=== PATIENT | female | born 1930 | race Caucasian/White ===

== ENCOUNTER → 2017-03-06 | Outpatient (CLI) | payer MEDICARE ==
[~2017-03-06] VITALS: Ht 30.5 cm; Wt 0.5 kg
[~2017-03-06] MED LIST: ARFO15NE2 NEB; CLOP75TA41 PO; DOCU-80 PO; DON5T PO; FURO20TA3 PO; FUROSEMIDE 40 MG/4 ML VIAL IV ONE; FUROSEMIDE 40 MG/4 ML VIAL ONE; LEV50T PO; LEVO-28 PO; LEVO750T2 PO; LEVOPOW43 PO; LOR05T PO; LOS50T PO; MULTTAB5 PO; PHEN-250 PO; PHEN50CH4 OR; POT10T PO; POTA10TA34 PO; POTA80TA PO; POTASSIUM CHL 10 Meq TABLET PO ONE; SIMV-8 PO; SIMV10TA84 PO; TIOTCAP INH; TOLT2CAP7 PO; TOLT4CAP12 PO; [UNRECOGNIZED DRUG - CODE] PO
[2017-03-06 11:15] VITALS: BP 122/49
[2017-03-06 11:40] VITALS: BP 122/49
[2017-03-06 16:29] LABS: BUN/Creatinine Ratio 21.7; Calcium 8.3 mg/dL (8.5-10.1); Potassium 4.4 mmol/L (3.5-5.1)
== END | disposition home or self-care (01) ==
LOC: Rad HDHVI 11:18
PROVIDERS: ATTEND Internal Medicine Cardiovascular Disease
DX: I11.0 Hypertensive heart disease with heart failure (principal); I50.9 Heart failure, unspecified
CPT/HCPCS: 36415; 80048; 93971; 96374; G0463; J1940; 96365

== ENCOUNTER → 2017-04-01 | Outpatient (CLI) | payer MEDICARE, OTHER ==
[~2017-04-01] MED LIST changes: -FUROSEMIDE 40 MG/4 ML VIAL IV ONE; -FUROSEMIDE 40 MG/4 ML VIAL ONE; -LOR05T PO; +LORA-654 PO; -POTASSIUM CHL 10 Meq TABLET PO ONE
[2017-04-01 16:36] LABS: Calcium 8.5 mg/dL (8.5-10.1); Potassium 4.3 mmol/L (3.5-5.1)
[2017-04-01 16:38] LABS: BUN/Creatinine Ratio 22.6
== END | disposition home or self-care (01) ==
LOC: LAB 12:12
PROVIDERS: ATTEND Internal Medicine Cardiovascular Disease
DX: I10 Essential (primary) hypertension (principal)
CPT/HCPCS: 36415; 80048

== ENCOUNTER → 2017-04-24 | Outpatient (CLI) | payer MEDICARE, OTHER ==
[~2017-04-24] VITALS: Ht 33 cm; Wt 0.5 kg
[~2017-04-24] MED LIST changes: +FUROSEMIDE 100 MG/10ML VIAL IV ONE; +FUROSEMIDE 40 MG/4 ML VIAL ONE; +POTASSIUM CHL 10 Meq TABLET PO ONE; +POTASSIUM CHL 20 Meq TABLET PO ONE
[2017-04-24 10:50] VITALS: BP 114/56
[2017-04-24 11:20] VITALS: BP 129/61
[2017-04-24 12:45] LABS: Basophils # (auto) 0 uL; Basophils % (auto) 0.5 % (0.0-2.0); Eosinophils # (auto) 0 uL; Eosinophils % (auto) 0.5 % (0.0-7.0); Hematocrit 33.4 % (36.0-46.0); Hemoglobin 11.4 g/dL (12.2-16.2); Lymphocytes # (auto) 0.8 uL; Lymphocytes % (auto) 37.7 % (10.0-50.0); Mean Corpuscular Hemoglobin 37.3 pg (28.0-32.0); Mean Corpuscular Hgb Conc. 34.2 g/dL (32.0-36.0); Mean Corpuscular Volume 109.2 fL (80.0-100.0); Mean Platelet Volume 6.6 fL (6.9-10.8); Monocytes # (auto) 0.1 uL; Monocytes % (auto) 3.9 % (0.0-12.0); Neutrophils # (auto) 1.2 uL; Neutrophils % (auto) 57.4 % (37.0-80.0); Nucleated Red Blood Cells % 0.2 %; Platelet Count (auto) 111 10^3/uL (140-450); Red Cell Distribution Width 14.4 % (11.8-14.3); White Blood Cell 2.1 10^3/uL (4.4-10.8)
[2017-04-24 13:23] LABS: Potassium 4.6 mmol/L (3.5-5.1)
== END | disposition home or self-care (01) ==
LOC: CHF HDHVI 10:57
PROVIDERS: ATTEND Internal Medicine Cardiovascular Disease
DX: E87.6 Hypokalemia (principal); R94.4 Abnormal results of kidney function studies; D64.9 Anemia, unspecified
CPT/HCPCS: 36415; 82565; 84132; 84520; 85025; 96374; G0463; J1940

== ENCOUNTER → 2017-05-02 | Outpatient (CLI) | payer MEDICARE, OTHER ==
[~2017-05-02] MED LIST changes: +CYANOCOBALAMIN (B-12) 1000 MCG/1 ML VIAL IM ONE; +CYANOCOBALAMIN (B-12) 1000 MCG/1 ML VIAL ONE; -FUROSEMIDE 100 MG/10ML VIAL IV ONE; -FUROSEMIDE 40 MG/4 ML VIAL ONE; -POTASSIUM CHL 10 Meq TABLET PO ONE; -POTASSIUM CHL 20 Meq TABLET PO ONE
[2017-05-02 14:25] VITALS: BP 139/60
== END | disposition home or self-care (01) ==
LOC: CHF HDHVI 14:25
PROVIDERS: ATTEND Internal Medicine Cardiovascular Disease
DX: I50.9 Heart failure, unspecified (principal); R53.83 Other fatigue; R60.0 Localized edema
CPT/HCPCS: 96372; G0463; J3420

== ENCOUNTER → 2017-06-13 | Outpatient (CLI) | payer MEDICARE, OTHER ==
[~2017-06-13] MED LIST changes: -CYANOCOBALAMIN (B-12) 1000 MCG/1 ML VIAL IM ONE; -CYANOCOBALAMIN (B-12) 1000 MCG/1 ML VIAL ONE
== END | disposition home or self-care (01) ==
LOC: Rad HDHVI 11:08
PROVIDERS: ATTEND Internal Medicine Cardiovascular Disease
DX: I51.7 Cardiomegaly (principal); M40.294 Other kyphosis, thoracic region; M85.80 Other specified disorders of bone density and structure, unspecified site
CPT/HCPCS: 71046

== ENCOUNTER → 2017-08-30 | Outpatient (CLI) | payer MEDICARE, OTHER ==
[~2017-08-30] MED LIST changes: +IOHEXOL 350 MG/ML 100ML IJ ONE; +READI-CAT 2 (BARIUM SULF)(VANILLA SMOOTHIE) 450ML ONE
[2017-08-30 09:20] VITALS: BP 112/62
[2017-08-30 10:00] VITALS: BP 114/55
== END | disposition home or self-care (01) ==
LOC: Rad HDHVI 09:10
PROVIDERS: ATTEND Internal Medicine Cardiovascular Disease
DX: K42.9 Umbilical hernia without obstruction or gangrene (principal); R59.1 Generalized enlarged lymph nodes; I10 Essential (primary) hypertension
CPT/HCPCS: 74177; 82565; G0463; Q9967

== ENCOUNTER → 2018-02-13 | Outpatient (CLI) | payer MEDICARE, OTHER ==
[~2018-02-13] MED LIST changes: -IOHEXOL 350 MG/ML 100ML IJ ONE; -POTA10TA34 PO; +POTA1TAB61 PO; -READI-CAT 2 (BARIUM SULF)(VANILLA SMOOTHIE) 450ML ONE
== END | disposition home or self-care (01) ==
LOC: Rad HDHVI 14:12
PROVIDERS: ATTEND Internal Medicine Cardiovascular Disease
DX: I21.19 ST elevation (STEMI) myocardial infarction involving other coronary artery of inferior wall (principal); I49.9 Cardiac arrhythmia, unspecified; R94.31 Abnormal electrocardiogram [ECG] [EKG]; Z88.5 Allergy status to narcotic agent
CPT/HCPCS: 93306

== ENCOUNTER → 2018-03-13 | Outpatient (CLI) | payer MEDICARE, OTHER | END | disposition home or self-care (01) | LOC: Rad HDHVI 11:11 | PROVIDERS: ATTEND Internal Medicine Cardiovascular Disease | DX: M48.061 Spinal stenosis, lumbar region without neurogenic claudication (principal) | CPT/HCPCS: 72131 ==

== ENCOUNTER → 2019-03-18 | Outpatient (CLI) | payer MEDICARE, OTHER ==
[~2019-03-18] MED LIST changes: -LORA-654 PO; +LORA0.5T12 PO
[2019-03-18 11:54] LABS: Eosinophils # (auto) 0 uL; Hemoglobin 12.3 g/dL (12.2-16.2); Monocytes # (auto) 0.3 uL; Monocytes % (auto) 2.9 % (0.0-12.0); Red Blood Cells 3.31 10^6/uL (4.0-5.20)
[2019-03-18 11:56] LABS: Basophils # (auto) 0 uL; Basophils % (auto) 0.4 % (0.0-2.0); Eosinophils % (auto) 0.2 % (0.0-7.0); Hematocrit 36.6 % (36.0-46.0); Lymphocytes # (auto) 6.2 uL; Lymphocytes % (auto) 51.9 % (10.0-50.0); Mean Corpuscular Hemoglobin 37.4 pg (28.0-32.0); Mean Corpuscular Hgb Conc. 33.7 g/dL (32.0-36.0); Mean Corpuscular Volume 110.8 fL (80.0-100.0); Neutrophils # (auto) 5.4 uL; Neutrophils % (auto) 44.6 % (37.0-80.0); Platelet Count (auto) 172 10^3/uL (140-450); Red Cell Distribution Width 13.9 % (11.8-14.3)
[2019-03-18 12:25] LABS: Potassium 3.8 mmol/L (3.5-5.1)
[2019-03-18 12:52] LABS: Albumin 3.2 g/dL (3.4-5.0); Bilirubin, Total 0.4 mg/dL (0.2-1.0); Calcium 8.8 mg/dL (8.5-10.1)
[2019-03-18 13:28] LABS: Free T4 (Free Thyroxine) 1.19 ng/dL (0.89-1.76)
[2019-03-18 15:57] LABS: Urine Blood 2+ /uL (Negative); Urine Specific Gravity 1.019 (1.001-1.035)
== END | disposition home or self-care (01) ==
LOC: LAB 08:13
PROVIDERS: ATTEND Internal Medicine Cardiovascular Disease
DX: E03.9 Hypothyroidism, unspecified (principal); K90.9 Intestinal malabsorption, unspecified; D51.9 Vitamin B12 deficiency anemia, unspecified; N39.0 Urinary tract infection, site not specified; Z79.899 Other long term (current) drug therapy
CPT/HCPCS: 36415; 80053; 80061; 81003; 82306; 82607; 83036; 84439; 84443; 85025; 87086; 87088; 87186

== ENCOUNTER 2019-08-07 08:49 | Inpatient (IN) | payer MEDICARE, OTHER ==
[~2019-08-07] VITALS: Ht 167.6 cm; Wt 71.9 kg
[2019-08-07] MEDS ORDERED: ONDANSETRON HCL 4 MG/2 ML VIAL IV ONE (09:30)
[2019-08-07] MEDS ORDERED: SODIUM CHLORIDE 0.9% 500 ML IVB ONE (09:30)
[2019-08-07] MEDS ORDERED: MORPHINE SULFATE 4 MG/ML SYR/VIAL IV ONE (09:30)
[2019-08-07 10:17] LABS: Eosinophils # (auto) 0 10 ^3/uL (0-0.8); Hemoglobin 12.6 g/dL (12.2-16.2); Monocytes # (auto) 0.6 10 ^3/uL (0-1.3); Platelet Count (auto) 169 10^3/uL (140-450)
[2019-08-07 10:18] LABS: Basophils # (auto) 0.1 10 ^3/uL (0-0.2); Basophils % (auto) 0.4 % (0.0-2.0); Hematocrit 36.9 % (36.0-46.0); Lymphocytes # (auto) 4.4 10 ^3/uL (0.4-5.4); Lymphocytes % (auto) 31.3 % (10.0-50.0); Mean Corpuscular Hemoglobin 34.8 pg (28.0-32.0); Mean Corpuscular Volume 102.4 fL (80.0-100.0); Neutrophils # (auto) 9.1 10 ^3/uL (1.6-8.6); Neutrophils % (auto) 64.3 % (37.0-80.0); Red Cell Distribution Width 14.3 % (11.8-14.3); White Blood Cell 14.1 10^3/uL (4.4-10.8)
[2019-08-07 10:34] LABS: INR 1.07 (0.9-1.15)
[2019-08-07 10:37] LABS: Albumin 3.3 g/dL (3.4-5.0); Magnesium 2.3 mg/dL (1.6-2.6); Potassium 3.5 mmol/L (3.5-5.1)
[2019-08-07 10:42] LABS: BUN/Creatinine Ratio 17.8; Bilirubin, Total 0.7 mg/dL (0.2-1.0); Calcium 8.7 mg/dL (8.5-10.1)
[2019-08-07 11:28] LABS: Urine Bacteria FEW /hpf (None Seen); Urine Blood TRACE /uL (Negative); Urine Hyaline Cast MOD /lpf (0 - 2); Urine Specific Gravity 1.014 (1.001-1.035); Urine WBC 8 /hpf (0 - 5)
[2019-08-07] MEDS ORDERED: NITROGLYCERIN 0.4 MG SL TAB SL PRN (11:45)
[2019-08-07] MEDS ORDERED: MORPHINE SULF INJ 2 MG/ML SYRINGE 1ML IV PRN (11:45)
[2019-08-07 14:17] VITALS: BP 142/76
[2019-08-07 14:23] VITALS: BP 142/76
[2019-08-07] MEDS: PHENYTOIN SODIUM 100 MG CAP PO SCH ×2 (14:31→22:13)
[2019-08-07] MEDS ORDERED: HYDROcodone-ACET 10/325MG TAB PO PRN (15:15)
[2019-08-07] MEDS ORDERED: ceFAZolin 1GM/50ML 50 ML IV ONE (17:45)
[2019-08-07 17:55] VITALS: BP 128/51
[2019-08-07] MEDS: HYDROmorphone HCL 2 MG/ML VL IV PRN (18:25)
[2019-08-07 22:08] VITALS: BP 123/51
[2019-08-07] MEDS: ENOXAPARIN SOD 40 MG/0.4 ML SYRINGE SC SCH (22:13)
[2019-08-07] MEDS: ATORVASTATIN 20 MG TAB PO SCH (22:14)
[2019-08-08] VITALS (7 sets, daily range): BP systolic 104–149; BP diastolic 47–71
[2019-08-08] MEDS: HYDROmorphone HCL 2 MG/ML VL IV PRN ×2 (04:00→11:21)
[2019-08-08] MEDS: PHENYTOIN SODIUM 100 MG CAP PO SCH ×3 (06:29→22:57)
[2019-08-08] MEDS: IBRUTINIB 140 MG PO SCH (09:36)
[2019-08-08] MEDS: LETROZOLE PO SCH (09:43)
[2019-08-08] MEDS: ENOXAPARIN SOD 40 MG/0.4 ML SYRINGE SC SCH ×2 (09:45→22:56)
[2019-08-08] MEDS: LEVOTHYROXINE SODIUM 50 MCG TAB PO SCH (09:46)
[2019-08-08] MEDS: MEMANTINE HCL 5 MG TAB PO SCH (09:48)
[2019-08-08] MEDS: TORSEMIDE 20 MG TAB PO SCH (09:50)
[2019-08-08] MEDS: POTASSIUM CHL 10 Meq TABLET PO SCH (09:54)
[2019-08-08] MEDS: ALPRAZolam 0.25 MG TAB PO SCH (14:36)
[2019-08-08] MEDS: ATORVASTATIN 20 MG TAB PO SCH (22:57)
[2019-08-09 05:00] VITALS: BP 122/60
[2019-08-09] MEDS: PHENYTOIN SODIUM 100 MG CAP PO SCH (06:41)
[2019-08-09 09:01] VITALS: BP 123/55
[2019-08-09] MEDS: LETROZOLE PO SCH (09:21)
[2019-08-09] MEDS: IBRUTINIB 140 MG PO SCH (09:22)
[2019-08-09] MEDS: ENOXAPARIN SOD 40 MG/0.4 ML SYRINGE SC SCH (09:24)
[2019-08-09] MEDS: LEVOTHYROXINE SODIUM 50 MCG TAB PO SCH (09:25)
[2019-08-09] MEDS: MEMANTINE HCL 5 MG TAB PO SCH (09:26)
[2019-08-09] MEDS: TORSEMIDE 20 MG TAB PO SCH (09:30)
[2019-08-09] MEDS: POTASSIUM CHL 10 Meq TABLET PO SCH (09:31)
[2019-08-09] MEDS: HYDROmorphone HCL 2 MG/ML VL IV PRN ×2 (09:39→16:49)
[2019-08-09] MEDS: ALPRAZolam 0.25 MG TAB PO SCH (11:03)
[2019-08-09 12:49] VITALS: BP 106/45
[2019-08-09 17:26] VITALS: BP 108/46
[2019-08-09 21:00] VITALS: BP 129/55
[2019-08-09] MEDS: ATORVASTATIN 20 MG TAB PO SCH (22:00)
[2019-08-10 05:00] VITALS: BP 116/50
[2019-08-10 09:00] VITALS: BP_SYST 121; BP_SYST 132; BP_DIAS 50; BP_DIAS 55
[2019-08-10] MEDS: LETROZOLE PO SCH (10:11)
[2019-08-10] MEDS: IBRUTINIB 140 MG PO SCH (10:11)
[2019-08-10] MEDS: levoFLOXacin 500MG 100 ML IV SCH (10:11)
[2019-08-10] MEDS: HYDROmorphone HCL 2 MG/ML VL IV PRN ×2 (10:43→18:32)
[2019-08-10 17:00] VITALS: BP 122/62
[2019-08-10 18:17] LABS: Basophils # (auto) 0 10 ^3/uL (0-0.2); Basophils % (auto) 0.2 % (0.0-2.0); Eosinophils # (auto) 0 10 ^3/uL (0-0.8); Lymphocytes # (auto) 4.4 10 ^3/uL (0.4-5.4); Monocytes # (auto) 0.7 10 ^3/uL (0-1.3); Red Cell Distribution Width 13.9 % (11.8-14.3)
[2019-08-10 18:20] LABS: Hematocrit 34.2 % (36.0-46.0); Hemoglobin 11.6 g/dL (12.2-16.2); Lymphocytes % (auto) 24.5 % (10.0-50.0); Mean Corpuscular Hemoglobin 34.5 pg (28.0-32.0); Mean Corpuscular Hgb Conc. 33.8 g/dL (32.0-36.0); Mean Corpuscular Volume 101.8 fL (80.0-100.0); Monocytes % (auto) 3.7 % (0.0-12.0); Neutrophils # (auto) 12.8 10 ^3/uL (1.6-8.6); Neutrophils % (auto) 71.6 % (37.0-80.0); Platelet Count (auto) 153 10^3/uL (140-450); Red Blood Cells 3.36 10^6/uL (4.0-5.20); White Blood Cell 17.9 10^3/uL (4.4-10.8)
[2019-08-10 18:36] LABS: BUN/Creatinine Ratio 27.4; Calcium 8.9 mg/dL (8.5-10.1); Potassium 3.6 mmol/L (3.5-5.1)
[2019-08-10 21:00] VITALS: BP 123/62
[2019-08-10] MEDS: ATORVASTATIN 20 MG TAB PO SCH (22:51)
[2019-08-11 05:00] VITALS: BP 139/73
[2019-08-11 06:32] LABS: INR 1.01 (0.9-1.15); Partial Thromboplastin Time 31.3 sec (23.64-32.05)
[2019-08-11 09:00] VITALS: BP 135/63
[2019-08-11] MEDS ORDERED: ceFAZolin 1GM/50ML 50 ML IV ONE (09:09)
[2019-08-11] MEDS ORDERED: LIDOCAINE 1% HCL (LOCAL ANESTH.) INJ 20ML MDV ONE (09:29)
[2019-08-11] MEDS ORDERED: SUCCINYLCHOLINE CHLORIDE 20 MG/ML 10ML VIAL IV ONE (09:29)
[2019-08-11] MEDS ORDERED: ETOMIDATE (2MG/ML) 20ML VIAL IV ONE (09:34)
[2019-08-11] MEDS ORDERED: ROCURONIUM 10MG/ML 10ML VIAL IV ONE (09:34)
[2019-08-11] MEDS: levoFLOXacin 500MG 100 ML IV SCH (10:00)
[2019-08-11] MEDS: LETROZOLE PO SCH (10:00)
[2019-08-11] MEDS: IBRUTINIB 140 MG PO SCH (10:00)
[2019-08-11] MEDS ORDERED: fentaNYL CITRATE 100 MCG/2 ML VL ONE (10:11)
[2019-08-11] MEDS ORDERED: GLYCOPYRROLATE 0.2 MG/ML 1ML VIAL ONE (10:48)
[2019-08-11] MEDS ORDERED: NEOSTIGMINE 1 MG/ML INJ (10mg/10ML VIAL) ONE (10:48)
[2019-08-11] MEDS ORDERED: ONDANSETRON HCL 4 MG/2 ML VIAL IV PRN (11:15)
[2019-08-11] MEDS ORDERED: HYDROcodone-ACET 10/325MG TAB PO PRN (11:15)
[2019-08-11] MEDS ORDERED: HYDROmorphone HCL 2 MG/ML VL IV PRN (11:15)
[2019-08-11] MEDS ORDERED: NALOXONE HCL 0.4 MG/ML VIAL IV PRN (11:15)
[2019-08-11 13:00] VITALS: BP 139/70
[2019-08-11] MEDS: ceFAZolin 1GM/50ML 50 ML IV SCH ×2 (15:30→21:18)
[2019-08-11] MEDS: HYDROmorphone HCL 2 MG/ML VL IV PRN ×2 (16:23→21:18)
[2019-08-11 17:00] VITALS: BP 112/55
[2019-08-11] MEDS: ATORVASTATIN 20 MG TAB PO SCH (21:17)
[2019-08-11 22:00] VITALS: BP 113/51
[2019-08-12] VITALS (7 sets, daily range): BP systolic 88–121; BP diastolic 45–68
[2019-08-12] MEDS: ceFAZolin 1GM/50ML 50 ML IV SCH ×3 (05:36→23:14)
[2019-08-12 07:57] LABS: Hematocrit 30.5 % (36.0-46.0); Hemoglobin 10.5 g/dL (12.2-16.2)
[2019-08-12] MEDS: IBRUTINIB 140 MG PO SCH (09:56)
[2019-08-12] MEDS: LETROZOLE PO SCH (09:57)
[2019-08-12] MEDS: levoFLOXacin 500MG 100 ML IV SCH (09:58)
[2019-08-12] MEDS ORDERED: ENOXAPARIN SOD 40 MG/0.4 ML SYRINGE SC SCH (10:00)
[2019-08-12 16:58] LABS: Eosinophils # (auto) 0 10 ^3/uL (0-0.8); Mean Corpuscular Volume 100.9 fL (80.0-100.0); Monocytes # (auto) 0.7 10 ^3/uL (0-1.3); Neutrophils # (auto) 12.3 10 ^3/uL (1.6-8.6); Neutrophils % (auto) 71.7 % (37.0-80.0); White Blood Cell 17.2 10^3/uL (4.4-10.8)
[2019-08-12 17:03] LABS: Basophils # (auto) 0 10 ^3/uL (0-0.2); Basophils % (auto) 0.2 % (0.0-2.0); Lymphocytes # (auto) 4.2 10 ^3/uL (0.4-5.4); Lymphocytes % (auto) 24.2 % (10.0-50.0); Monocytes % (auto) 3.9 % (0.0-12.0); Red Blood Cells 2.57 10^6/uL (4.0-5.20)
[2019-08-12 17:04] LABS: Hematocrit 25.9 % (36.0-46.0); Hemoglobin 8.8 g/dL (12.2-16.2); Mean Corpuscular Hemoglobin 34.4 pg (28.0-32.0); Mean Corpuscular Hgb Conc. 34.1 g/dL (32.0-36.0); Platelet Count (auto) 156 10^3/uL (140-450); Red Cell Distribution Width 13.6 % (11.8-14.3)
[2019-08-12] MEDS: Ensure HIGH Protein Chocolate 8oz Bottle PO SCH (19:44)
[2019-08-12] MEDS: ATORVASTATIN 20 MG TAB PO SCH (23:11)
[2019-08-13] VITALS (7 sets, daily range): BP systolic 89–110; BP diastolic 43–55
[2019-08-13] MEDS: ceFAZolin 1GM/50ML 50 ML IV SCH ×3 (05:47→22:21)
[2019-08-13 07:38] LABS: Basophils # (auto) 0 10 ^3/uL (0-0.2); Eosinophils # (auto) 0 10 ^3/uL (0-0.8); Hemoglobin 9.7 g/dL (12.2-16.2); Monocytes # (auto) 0.4 10 ^3/uL (0-1.3); Red Cell Distribution Width 16.2 % (11.8-14.3)
[2019-08-13 07:46] LABS: Basophils % (auto) 0.3 % (0.0-2.0); Hematocrit 28.3 % (36.0-46.0); Lymphocytes # (auto) 3.4 10 ^3/uL (0.4-5.4); Lymphocytes % (auto) 23.9 % (10.0-50.0); Mean Corpuscular Hemoglobin 34.1 pg (28.0-32.0); Mean Corpuscular Hgb Conc. 34.4 g/dL (32.0-36.0); Mean Corpuscular Volume 99.1 fL (80.0-100.0); Monocytes % (auto) 2.7 % (0.0-12.0); Neutrophils # (auto) 10.5 10 ^3/uL (1.6-8.6); Neutrophils % (auto) 73.1 % (37.0-80.0); Platelet Count (auto) 158 10^3/uL (140-450); Red Blood Cells 2.85 10^6/uL (4.0-5.20); White Blood Cell 14.3 10^3/uL (4.4-10.8)
[2019-08-13 07:47] LABS: Albumin 2.1 g/dL (3.4-5.0); Anion Gap 7 (5-15); Blood Urea Nitrogen 45 mg/dL (7-18); Calcium 8.9 mg/dL (8.5-10.1); Carbon Dioxide 29 mmol/L (21-32); Chloride 102 mmol/L (98-107); Glucose 113 mg/dL (74-106); Potassium 3.9 mmol/L (3.5-5.1); Sodium 138 mmol/L (136-145)
[2019-08-13 07:50] LABS: Alanine Aminotransferase < 6 U/L (13-56); Alkaline Phosphatase 71 U/L (45-117); Aspartate Aminotransferase 15 U/L (15-37); BUN/Creatinine Ratio 33.3; Bilirubin, Total 0.6 mg/dL (0.2-1.0); GFR African American 47 mL/min; GFR Non-African American 39 mL/min; Total Protein 5.5 g/dL (6.4-8.2)
[2019-08-13] MEDS: Ensure HIGH Protein Chocolate 8oz Bottle PO SCH ×3 (08:00→18:48)
[2019-08-13] MEDS: IBRUTINIB 140 MG PO SCH (10:00)
[2019-08-13] MEDS: LETROZOLE PO SCH (10:00)
[2019-08-13] MEDS: levoFLOXacin 500MG 100 ML IV SCH (10:10)
[2019-08-13] MEDS: ATORVASTATIN 20 MG TAB PO SCH (22:21)
[2019-08-14] VITALS (7 sets, daily range): BP systolic 99–136; BP diastolic 36–62
[2019-08-14] MEDS: ceFAZolin 1GM/50ML 50 ML IV SCH ×3 (05:44→21:52)
[2019-08-14 07:27] LABS: Hemoglobin 9.4 g/dL (12.2-16.2)
[2019-08-14 07:31] LABS: Hematocrit 26.8 % (36.0-46.0)
[2019-08-14] MEDS: levoFLOXacin 250MG 50 ML IV SCH (10:01)
[2019-08-14] MEDS: LETROZOLE PO SCH (10:03)
[2019-08-14] MEDS: IBRUTINIB 140 MG PO SCH (10:10)
[2019-08-14] MEDS: Ensure HIGH Protein Chocolate 8oz Bottle PO SCH ×3 (12:00→18:00)
[2019-08-14] MEDS: LACTULOSE 20Gm/30ML SOLN PO PRN (12:00)
[2019-08-14] MEDS: ATORVASTATIN 20 MG TAB PO SCH (21:52)
[2019-08-15] VITALS (7 sets, daily range): BP systolic 98–128; BP diastolic 36–75
[2019-08-15] MEDS: ceFAZolin 1GM/50ML 50 ML IV SCH ×3 (05:43→21:57)
[2019-08-15] MEDS: Ensure HIGH Protein Chocolate 8oz Bottle PO SCH ×3 (08:00→18:27)
[2019-08-15] MEDS: IBRUTINIB 140 MG PO SCH (09:44)
[2019-08-15] MEDS: levoFLOXacin 250MG 50 ML IV SCH (09:44)
[2019-08-15] MEDS: LETROZOLE PO SCH (09:45)
[2019-08-15 11:21] LABS: Hematocrit 25.8 % (36.0-46.0); Hemoglobin 8.8 g/dL (12.2-16.2)
[2019-08-15] MEDS: IRON SUCROSE COMPLEX 200 MG in SODIUM CHL 0.9% 100 ML IV SCH (13:00)
[2019-08-15] MEDS: ATORVASTATIN 20 MG TAB PO SCH ×2 (21:57→22:00)
[2019-08-15] MEDS ORDERED: EPOETIN ALFA 10,000 UNIT/1 ML VIAL SC ONE (22:00)
[2019-08-16 05:35] VITALS: BP 106/45
[2019-08-16] MEDS: ceFAZolin 1GM/50ML 50 ML IV SCH ×3 (05:36→21:07)
[2019-08-16 06:17] LABS: Hematocrit 25.6 % (36.0-46.0); Hemoglobin 8.7 g/dL (12.2-16.2)
[2019-08-16] MEDS: Ensure HIGH Protein Chocolate 8oz Bottle PO SCH ×3 (08:00→17:50)
[2019-08-16 09:32] VITALS: BP 98/47
[2019-08-16] MEDS: LETROZOLE PO SCH (09:51)
[2019-08-16] MEDS: levoFLOXacin 250MG 50 ML IV SCH (09:51)
[2019-08-16] MEDS: IBRUTINIB 140 MG PO SCH (09:51)
[2019-08-16] MEDS: IRON SUCROSE COMPLEX 200 MG in SODIUM CHL 0.9% 100 ML IV SCH (12:10)
[2019-08-16 13:00] VITALS: BP 114/55
[2019-08-16 17:41] VITALS: BP 106/53
[2019-08-16] MEDS: ATORVASTATIN 20 MG TAB PO SCH (21:07)
[2019-08-16 22:00] VITALS: BP 107/44
[2019-08-17] MEDS: ceFAZolin 1GM/50ML 50 ML IV SCH ×3 (05:10→21:16)
[2019-08-17 05:37] VITALS: BP 117/44
[2019-08-17] MEDS: Ensure HIGH Protein Chocolate 8oz Bottle PO SCH ×4 (08:00→18:00)
[2019-08-17 09:00] VITALS: BP 112/51
[2019-08-17 09:40] LABS: Hematocrit 26.8 % (36.0-46.0)
[2019-08-17] MEDS: levoFLOXacin 250MG 50 ML IV SCH ×2 (10:09→18:55)
[2019-08-17] MEDS: IBRUTINIB 140 MG PO SCH (10:13)
[2019-08-17] MEDS: LETROZOLE PO SCH (10:13)
[2019-08-17] MEDS: IRON SUCROSE COMPLEX 200 MG in SODIUM CHL 0.9% 100 ML IV SCH (12:00)
[2019-08-17 13:00] VITALS: BP 107/50
[2019-08-17 17:00] VITALS: BP 114/54
[2019-08-17] MEDS: ATORVASTATIN 20 MG TAB PO SCH (21:15)
[2019-08-17 22:00] VITALS: BP 123/52
[2019-08-18] MEDS: ceFAZolin 1GM/50ML 50 ML IV SCH ×3 (05:31→21:21)
[2019-08-18 05:39] VITALS: BP 113/53
[2019-08-18 06:46] LABS: Hematocrit 26.9 % (36.0-46.0)
[2019-08-18] MEDS: Ensure HIGH Protein Chocolate 8oz Bottle PO SCH ×3 (08:00→18:07)
[2019-08-18 09:53] VITALS: BP 108/36
[2019-08-18] MEDS: IBRUTINIB 140 MG PO SCH (11:13)
[2019-08-18] MEDS: IRON SUCROSE COMPLEX 200 MG in SODIUM CHL 0.9% 100 ML IV SCH (11:13)
[2019-08-18] MEDS: LETROZOLE PO SCH (11:13)
[2019-08-18 13:00] VITALS: BP 109/48
[2019-08-18 17:01] VITALS: BP 121/49
[2019-08-18] MEDS ORDERED: LACTULOSE 20Gm/30ML SOLN PO ONE (18:30)
[2019-08-18] MEDS: LACTULOSE 20Gm/30ML SOLN PO PRN (18:45)
[2019-08-18] MEDS: ATORVASTATIN 20 MG TAB PO SCH (21:21)
[2019-08-18 21:22] VITALS: BP 117/50
[2019-08-19 05:01] VITALS: BP 114/53
[2019-08-19] MEDS: ceFAZolin 1GM/50ML 50 ML IV SCH ×2 (05:37→14:00)
[2019-08-19 08:00] VITALS: BP 123/55
[2019-08-19] MEDS: Ensure HIGH Protein Chocolate 8oz Bottle PO SCH ×3 (08:00→18:00)
[2019-08-19 08:55] VITALS: BP 118/53
[2019-08-19] MEDS: IBRUTINIB 140 MG PO SCH (09:36)
[2019-08-19] MEDS: levoFLOXacin 250MG 50 ML IV SCH (09:36)
[2019-08-19] MEDS: LETROZOLE PO SCH (09:37)
[2019-08-19] MEDS: IRON SUCROSE COMPLEX 200 MG in SODIUM CHL 0.9% 100 ML IV SCH (11:54)
[2019-08-19 13:00] VITALS: BP 118/55
[2019-08-19 17:05] VITALS: BP 124/59
== END 2019-08-19 18:20 | DRG 481 ==
LOC: EDBD 08:49 → ER 08:49 → TELE 08:50 → TELE-EAST 13:38
PROVIDERS: ADMIT Internal Medicine Cardiovascular Disease; ATTEND Internal Medicine Cardiovascular Disease
PROC: 0QS604Z Reposition Right Upper Femur with Internal Fixation Device, Open Approach (ICD-10-PCS; principal; 2019-08-11 09:34)
DX: S72.141A Displaced intertrochanteric fracture of right femur, initial encounter for closed fracture (principal); C85.90 Non-Hodgkin lymphoma, unspecified, unspecified site; N39.0 Urinary tract infection, site not specified; F03.90 Unspecified dementia, unspecified severity, without behavioral disturbance, psychotic disturbance, mood disturbance, and anxiety; I11.0 Hypertensive heart disease with heart failure; W18.30XA Fall on same level, unspecified, initial encounter; M19.90 Unspecified osteoarthritis, unspecified site; R60.9 Edema, unspecified; D64.9 Anemia, unspecified; I25.10 Atherosclerotic heart disease of native coronary artery without angina pectoris; I50.9 Heart failure, unspecified; M85.80 Other specified disorders of bone density and structure, unspecified site; M81.0 Age-related osteoporosis without current pathological fracture; J44.9 Chronic obstructive pulmonary disease, unspecified; Z86.73 Personal history of transient ischemic attack (TIA), and cerebral infarction without residual deficits; Z79.02 Long term (current) use of antithrombotics/antiplatelets; Z85.3 Personal history of malignant neoplasm of breast; Z86.011 Personal history of benign neoplasm of the brain; Z74.01 Bed confinement status
CPT/HCPCS: 36415; 51702; 71045; 73502; 76000; 80048; 80053; 80185; 81001; 83735; 84484; 85014; 85018; 85025; 85610; 85730; 86850; 86870; 86900; 86901; 86922; 87081; 93005; 96361; 96374; 96375; 97110; 97163; 97530; A4565; C1713; G0378; J0330; J0690; J0885; J1756; J1956; J2001; J2405

== ENCOUNTER 2019-09-06 15:15 | Inpatient (IN) | payer MEDICARE, OTHER ==
[~2019-09-06] VITALS: Ht 162.6 cm; Wt 60.0 kg
[~2019-09-06 15:15] MED LIST changes: -LEVO750T2 PO; +LEVO750T8 PO; -LORA0.5T12 PO; +LORA0.5T20 PO
[2019-09-06] MEDS ORDERED: SODIUM CHLORIDE 0.9% 1,000 ML IV ONE (15:35)
[2019-09-06 15:50] LABS: Eosinophils # (auto) 0 10 ^3/uL (0-0.8); Eosinophils % (auto) 0.2 % (0.0-7.0); Hemoglobin 11.6 g/dL (12.2-16.2); Lymphocytes # (auto) 1.9 10 ^3/uL (0.4-5.4); Mean Corpuscular Hgb Conc. 33.6 g/dL (32.0-36.0); Monocytes # (auto) 0.4 10 ^3/uL (0-1.3)
[2019-09-06 15:52] LABS: Basophils # (auto) 0.1 10 ^3/uL (0-0.2); Basophils % (auto) 0.8 % (0.0-2.0); Hematocrit 34.4 % (36.0-46.0); Lymphocytes % (auto) 22.5 % (10.0-50.0); Mean Corpuscular Hemoglobin 35.3 pg (28.0-32.0); Mean Corpuscular Volume 105.1 fL (80.0-100.0); Monocytes % (auto) 4.4 % (0.0-12.0); Neutrophils # (auto) 6.1 10 ^3/uL (1.6-8.6); Neutrophils % (auto) 72.1 % (37.0-80.0); Nucleated Red Blood Cells % 0.1 %; Platelet Count (auto) 199 10^3/uL (140-450); Red Blood Cells 3.27 10^6/uL (4.0-5.20); Red Cell Distribution Width 17.8 % (11.8-14.3); White Blood Cell 8.5 10^3/uL (4.4-10.8)
[2019-09-06 16:05] LABS: INR 1.06 (0.9-1.15)
[2019-09-06 16:09] LABS: Albumin 2.7 g/dL (3.4-5.0); BUN/Creatinine Ratio 18.8; Calcium 8.4 mg/dL (8.5-10.1); Potassium 3.8 mmol/L (3.5-5.1)
[2019-09-06 16:13] LABS: Urine Bacteria NONE SEEN /hpf (None Seen); Urine Blood Negative /uL (Negative); Urine Mucus FEW (None Seen); Urine Specific Gravity 1.021 (1.001-1.035); Urine WBC 8 /hpf (0 - 5)
[2019-09-06 16:14] LABS: Bilirubin, Total 0.4 mg/dL (0.2-1.0); Total Protein 5.5 g/dL (6.4-8.2)
[2019-09-06] MEDS ORDERED: HALOPERIDOL LACTATE 5 MG/ML INJ VIAL IM ONE (16:45)
[2019-09-06] MEDS ORDERED: HYDROcodone-ACET 5/325MG TAB PO PRN (19:15)
[2019-09-06] MEDS ORDERED: ONDANSETRON HCL 4 MG/2 ML VIAL IV PRN (19:15)
[2019-09-06] MEDS ORDERED: ACETAMINOPHEN 500 MG TAB PO PRN (19:15)
[2019-09-06] MEDS ORDERED: NITROGLYCERIN 0.4 MG SL TAB SL PRN (19:15)
[2019-09-06] MEDS ORDERED: MORPHINE SULF INJ 2 MG/ML SYRINGE 1ML IV PRN ×2 (19:15)
--- NOTE | 2019-09-06 21:14 | NUR ---
Telemetry admit from [facility]IVERA admitted to Telemetry unit. Patient oriented to BRIANNA WYATT RN primary RN, unit, room, bed, and unit policies regarding patient care and visiting hours. Patient now on continuous telemetry monitoring, tele box #[id number] and telemetry reading on arrival to unit is 78. Patient placed on bedside oxygen 2 L via nasal cannula, weighed by bed scale and encouraged to call if they need something. All questions and concerns addressed, patient verbalized understanding. Sitter at bedside, will continue to monitor.
[2019-09-06] MEDS: DONEPEZIL HYDROCHLORIDE 5 MG TAB PO SCH (23:00)
[2019-09-06] MEDS: APIXABAN 2.5 MG TAB PO SCH (23:00)
[2019-09-06 23:02] VITALS: BP 115/57
[2019-09-06 23:30] VITALS: BP 105/37
[2019-09-06 23:53] VITALS: BP 105/37
[2019-09-07 04:27] VITALS: BP 130/62
[2019-09-07 04:39] VITALS: BP 130/62
--- NOTE | 2019-09-07 09:05 | NUR ---
NOTED/ VAGINAL DISCHARGE PATIENT HAD NOTED VAGINAL DISCHARGE, COLOR GREEN/YELLOW, MALODOROUS. PATIENT HAD COMPLAINTS OF PAIN WHEN CLEANING VAGINA OF DISCHARGE. WILL COLLECT UA/URINE CULTURE AND WILL CONTINUE TO MONITOR.
[2019-09-07] MEDS: LOSARTAN POTASSIUM 50 MG TAB PO SCH (09:32)
[2019-09-07] MEDS: DOCUSATE SOD 100 MG CAP PO SCH (09:32)
[2019-09-07] MEDS: APIXABAN 2.5 MG TAB PO SCH ×2 (09:32→22:18)
[2019-09-07] MEDS ORDERED: FAMOTIDINE 20 MG TAB PO SCH ×2 (10:00→16:45)
--- NOTE | 2019-09-07 10:30 | NUR ---
WOUND CARE NOTE: WOUND CARE TEAM IN TO SEE PATIENT PER WOUND CARE REQUEST. PATIENT ADMITTED TO [facility] FOR METABOLIC ENCEPHALOPATHY. PATIENT HAS A CURRENT LORENZO SCORE OF 15. BEDSIDE NURSE NOTED MULTIPLE WOUNDS ON ADMISSION. WOUND PHOTOGRAPHS TAKEN AT THAT TIME. PATIENT HAS SKIN TEARS TO RIGHT HAND, LEFT FOREARM, AND RIGHT LOPEZ. ALL WOUNDS CLEANED WITH NORMAL SALINE, PATTED DRY WITH STERILE GAUZE. THERAHONEY APPLIED TO WOUNDS AND COVERED BY OPTIFOAM GENTLE DRESSING. PATIENT ALSO HAS PRESSURE INJURY TO RIGHT BUTTOCK. WOUND CLEANED WITH NORMAL SALINE, PATTED DRY WITH STERILE GAUZE. ZGUARD APPLIED AND COVERED WITH OPTIFOAM GENTLE SACRAL DRESSING. ORDERED SPECIALTY AIR BED. RECOMMEND: SPECIALTY AIR BED. PATIENT TO BE TRANSFERRED UPON DELIVERY BY [facility]. FREQUENT REPOSITION [id number]/PRN CONDITION PERMITS. REDISTRIBUTE PRESSURE UTILIZING PILLOWS AND WEDGES. BID/PRN MOISTURE BARRIER CREAM TO SACRUM/BUTTOCKS COVERING WITH OPTIFOAM GENTLE SACRAL DRESSING. SKIN/WOUND CARE PLAN. CONTINUED MONITORING BY WOUND CARE TEAM. Addendum: 09/07/19 at 1522 by EVIN HORVATH RN RN Amended: Links added.
[2019-09-07] MEDS ORDERED: LEVOTHYROXINE SODIUM 25 MCG TAB PO ONE (11:45)
--- NOTE | 2019-09-07 12:35 | NUR ---
MEDICATION REFUSAL PATIENT WAS IN BED SLEEPING, ATTEMPTED TO GIVE LEVOTHYROXINE PO AND PATIENT REFUSED MEDICATION VERBALLY AND BY PUSHING HAND AWAY. WILL CONTINUE TO MONITOR. PATIENT APPEARS LESS ACTIVE AND IS RESPONDING AFTER SEVERAL ATTEMPTS TO WAKE THE PATIENT.
--- NOTE | 2019-09-07 12:50 | NUR ---
CONTACTED DR. STEVENS CONTACTED DR. STEVENS ABOUT THE NOTED VAGINAL DISCHARGE, AND ODOR. DR. STEVENS HAS BEEN NOTIFIED.
[2019-09-07 16:59] LABS: Urine Bacteria NONE SEEN /hpf (None Seen); Urine Blood 2+ /uL (Negative); Urine Hyaline Cast FEW /lpf (0 - 2); Urine Mucus FEW (None Seen); Urine Specific Gravity 1.025 (1.001-1.035); Urine WBC 57 /hpf (0 - 5)
--- NOTE | 2019-09-07 19:06 | NUR ---
AIRBED DELIVERED AT CHANGE OF SHIFT.
[2019-09-07] MEDS ORDERED: PRAVASTATIN SODIUM 20 MG TAB PO SCH (22:00)
[2019-09-07] MEDS: DONEPEZIL HYDROCHLORIDE 5 MG TAB PO SCH (22:18)
[2019-09-07] MEDS: metroNIDAZOLE 500MG/100ML 100 ML IV SCH (22:18)
--- NOTE | 2019-09-08 01:48 | NUR ---
2000: PATIENT SEEN AND ASSESSED. LYING QUIETLY ON HER RIGHT SIDE. REUFSES TO BE TOUCHED. RATHER COMBATIVE. ON O2 NT2L BY NASAL CANULA.
--- NOTE | 2019-09-08 05:02 | NUR ---
BEDBATH DONE. COMPLETE LINEN CHANGE. PATIENT REPOSITIONED. BARRIER CREAM APPLIED.
[2019-09-08 05:17] VITALS: BP 125/49
[2019-09-08] MEDS: metroNIDAZOLE 500MG/100ML 100 ML IV SCH ×2 (05:27→15:03)
[2019-09-08] MEDS ORDERED: LEVOTHYROXINE SODIUM 25 MCG TAB PO SCH (07:00)
[2019-09-08 08:58] VITALS: BP 133/65
[2019-09-08] MEDS ORDERED: cefTRIAXone 1GM/50ML D5W 50 ML IV SCH (09:00)
[2019-09-08] MEDS: DOCUSATE SOD 100 MG CAP PO SCH (09:35)
[2019-09-08] MEDS: APIXABAN 2.5 MG TAB PO SCH (09:35)
[2019-09-08] MEDS: LOSARTAN POTASSIUM 50 MG TAB PO SCH (09:37)
[2019-09-08] MEDS ORDERED: FLUCONAZOLE 200MG/100ML 100 ML IV SCH (10:00)
[2019-09-08] MEDS ORDERED: FAMOTIDINE 20 MG TAB PO SCH (10:00)
[2019-09-08 13:00] VITALS: BP 136/78
--- NOTE | 2019-09-08 13:21 | NUR ---
NUTRITION CONSULT/ASSESSMENT NOTES Please refer to link notes of nutrition screen form filed under the intervention section of the plan of care for further details. Est. Energy Needs: 6234-7023 kcal ( 20-25 kcal/kg BW). Est. Protein Needs: 72-90 gms/day ( 1.2-1.5 gms/kg BW). Will continue to monitor pertinent labs and reassess nutrient need prn Addendum: 09/08/19 at [address] Amended: Links added.
--- NOTE | 2019-09-08 15:19 | NUR ---
Assessment Patient is an 88-year-old female who is confused. Prior to admission patient came from [facility]. Patient daughter Marva informed me patient has a front wheel walker and walker with seat for home use. Per Marva she is unable to care for patient and would like her to return to [facility] for physical therapy. Informed Marva there is a Social Service consult for [facility]. Marva advised me she is looking into ferry terminal supervisor care for patient after rehab. Informed patient daughter Marva she has the right to speak to Social Service regarding all care. Informed patient daughter Marva she has the right to participate in all discharge planning. Patient daughter Marva verbalized understanding and agrees to discharge plan. Faxed clinical information to [facility]. Per Terri with [facility] Ph:) patient has been assigned to room [address] Robles. Transportation has been arrange with [employer] [facility]:) via gurney/oxygen with a 20:45 merchandise pickup/receiving associate time. Informed ANIRUDH Schmitt. Addendum: 09/08/19 at 1537 by TORRES MARTIN Amended: Links added.
--- NOTE | 2019-09-08 16:05 | NUR ---
1550 SPOKE WITH DTR. CALLED AND SPOKE WITH DTR. GAVE HER UPDATE AND INFORMED HER THAT SHE WILL BE TRANSFERRED BACK TO [facility]. TRANSPORTATION IS SET UP FOR 2044 WITH [facility].
--- NOTE | 2019-09-08 16:08 | NUR ---
REPORTED TO GERALD Spoke with Marissa at [facility] and gave report on the patient. Answered all questions. Spoke with someone in insurance regarding patient having a sitter at this hospital. Informed her that the patient is not combative, not trying to pull out any lines, not trying to get out of bed. They said they would accept her back. Patient is non-compliant, sometimes refusing medications, food, or care (cleaning and PT).
[2019-09-08 16:45] VITALS: BP 118/72
--- NOTE | 2019-09-08 18:28 | NUR ---
Discharge Discharge paperwork completed. Pictures taken of skin tears to BUE and blister to RLE as well as area of sacrum. Will pass information along to next shift to remove IV and telemetry prior to patient leaving tonight.
--- NOTE | 2019-09-08 19:56 | NUR ---
PATIENT IS DISCHARGED. IV SALINE LOCK DISCONTINUED. TELEMETRY DISCONTINUED. TELEMETRY BOX REMOVED CLEANED AND RETURNED TO ICU VIA THE TUBE SYSTEM. TRANSPORT([facility]) [facility] ROOM 101. IS HERE AT THIS TIME TO TRANSFER PATIENT TO [facility] ROOM 101.
--- NOTE | 2019-09-08 20:01 | NUR ---
1999: PATIENT HAS JUST LEFT THE UNIT AWAKE AND ALERT AND STABLE.
== END 2019-09-08 20:00 | DRG 71 ==
LOC: EDBD 15:15 → ER 15:15 → TELE 15:16 → TELE-CENTR 21:09
PROVIDERS: ADMIT Nurse Practitioner Acute Care; ATTEND Internal Medicine
DX: G93.41 Metabolic encephalopathy (principal); E44.0 Moderate protein-calorie malnutrition; N30.00 Acute cystitis without hematuria; R62.7 Adult failure to thrive; G40.909 Epilepsy, unspecified, not intractable, without status epilepticus; M19.90 Unspecified osteoarthritis, unspecified site; I11.9 Hypertensive heart disease without heart failure; D64.9 Anemia, unspecified; Z96.641 Presence of right artificial hip joint; E03.9 Hypothyroidism, unspecified; J44.9 Chronic obstructive pulmonary disease, unspecified; F03.90 Unspecified dementia, unspecified severity, without behavioral disturbance, psychotic disturbance, mood disturbance, and anxiety; F41.9 Anxiety disorder, unspecified; Z68.22 Body mass index [BMI] 22.0-22.9, adult; Z86.73 Personal history of transient ischemic attack (TIA), and cerebral infarction without residual deficits; Z79.02 Long term (current) use of antithrombotics/antiplatelets; Z88.5 Allergy status to narcotic agent
CPT/HCPCS: 36415; 71045; 80053; 80185; 81001; 82962; 83605; 83880; 84439; 84443; 84484; 85025; 85610; 85730; 87040; 87081; 87086; 93005; 97163; G0378; J0696; J1450; J3490

== ENCOUNTER 2019-09-25 15:04 | Emergency (ER) | payer MEDICARE, OTHER ==
[~2019-09-25] VITALS: Ht 165.1 cm; Wt 43.1 kg
[~2019-09-25 15:04] MED LIST changes: +LEVO750T2 PO; -LEVO750T8 PO; +LORA0.5T12 PO; -LORA0.5T20 PO
[2019-09-25 15:50] LABS: Basophils # (auto) 0 10 ^3/uL (0-0.2); Eosinophils # (auto) 0 10 ^3/uL (0-0.8); Eosinophils % (auto) 0.1 % (0.0-7.0); Lymphocytes # (auto) 2.2 10 ^3/uL (0.4-5.4); Neutrophils # (auto) 5.1 10 ^3/uL (1.6-8.6); Red Cell Distribution Width 15.5 % (11.8-14.3); White Blood Cell 7.7 10^3/uL (4.4-10.8)
[2019-09-25 15:52] LABS: Basophils % (auto) 0.6 % (0.0-2.0); Hemoglobin 10.8 g/dL (12.2-16.2); Mean Corpuscular Hemoglobin 34.7 pg (28.0-32.0); Mean Corpuscular Hgb Conc. 32.7 g/dL (32.0-36.0); Mean Corpuscular Volume 106.1 fL (80.0-100.0); Monocytes # (auto) 0.4 10 ^3/uL (0-1.3); Monocytes % (auto) 4.6 % (0.0-12.0); Neutrophils % (auto) 65.7 % (37.0-80.0); Nucleated Red Blood Cells % 0.2 %; Platelet Count (auto) 205 10^3/uL (140-450); Red Blood Cells 3.11 10^6/uL (4.0-5.20)
[2019-09-25 16:15] LABS: Albumin 2.3 g/dL (3.4-5.0); Calcium 8.4 mg/dL (8.5-10.1); Magnesium 2.2 mg/dL (1.6-2.6); Potassium 3.8 mmol/L (3.5-5.1)
[2019-09-25 16:19] LABS: BUN/Creatinine Ratio 35.9; Bilirubin, Total 0.4 mg/dL (0.2-1.0); Total Protein 4.9 g/dL (6.4-8.2)
[2019-09-25] MEDS ORDERED: cefTRIAXone 1GM/50ML D5W 50 ML IV ONE (16:45)
[2019-09-25 17:14] VITALS: BP 121/37
[2019-09-25 18:35] LABS: Urine Bacteria FEW /hpf (None Seen); Urine Blood 1+ /uL (Negative); Urine Mucus FEW (None Seen); Urine Specific Gravity 1.026 (1.001-1.035); Urine WBC 703 /hpf (0 - 5); Urine WBC Clumps PRESENT /hpf (None Seen)
== END 2019-09-25 19:07 | disposition home or self-care (01) ==
LOC: EDBD 15:04 → ER 15:04
DX: F03.90 Unspecified dementia, unspecified severity, without behavioral disturbance, psychotic disturbance, mood disturbance, and anxiety (principal); N39.0 Urinary tract infection, site not specified; I11.0 Hypertensive heart disease with heart failure; I50.9 Heart failure, unspecified; J44.9 Chronic obstructive pulmonary disease, unspecified
CPT/HCPCS: 36415; 71045; 80053; 81001; 82728; 83615; 83735; 84484; 85025; 93005; 96365; 96366; 99285; J0696